=== PATIENT | male | born 1990 | race Caucasian/White ===

== ENCOUNTER 2019-02-26 00:45 | Emergency (ER) | payer SELFPAY ==
[~2019-02-26] VITALS: Ht 170.2 cm; Wt 82.0 kg
[2019-02-26] MEDS ORDERED: SODIUM CHLORIDE 0.9% 1,000 ML IV ONE (01:00)
[2019-02-26] MEDS ORDERED: ACETAMINOPHEN 500MG TABLET PO ONE (01:00)
[2019-02-26 05:57] VITALS: BP 149/75
== END 2019-02-26 05:55 | disposition home or self-care (01) ==
LOC: ER 00:45
DX: F10.229 Alcohol dependence with intoxication, unspecified (principal); R51 Headache; I10 Essential (primary) hypertension; F17.210 Nicotine dependence, cigarettes, uncomplicated; Y90.9 Presence of alcohol in blood, level not specified; Z59.0 Homelessness
CPT/HCPCS: 70450; 93005; 99284; J7030